=== PATIENT | female | born 1940 | race Caucasian/White ===

== ENCOUNTER 2021-03-01 05:53 | Day surgery (SDC) | payer OTHER ==
[2021-02-28 14:32] LABS: COVID AG,FIA SOURCE NASOPHARYNGEAL
[~2021-03-01] VITALS: Ht 121.9 cm; Wt 33.6 kg
[2021-03-01] MEDS ORDERED: SODIUM CHLORIDE 0.9% 1,000 ML ONE (06:24)
[2021-03-01] MEDS ORDERED: SODIUM CHLORIDE 0.9% 1,000 ML IV ONE (06:30)
[2021-03-01] MEDS ORDERED: ESCI10 PO (07:15)
[2021-03-01] MEDS ORDERED: MONT10TA32 PO (07:15)
[2021-03-01] MEDS ORDERED: TYL3B PO (07:15)
[2021-03-01] MEDS ORDERED: PREG50CA63 PO (07:15)
[2021-03-01] MEDS ORDERED: FERR325T23 PO (07:15)
[2021-03-01] MEDS ORDERED: CARB1TAB38 PO (07:15)
[2021-03-01] MEDS ORDERED: PANT40TA54 PO (07:15)
[2021-03-01] MEDS ORDERED: MIDAZOLAM HCL 5 MG/ML VIAL ONE (07:46)
[2021-03-01] MEDS ORDERED: FentaNYL CITRATE PF 100 MCG/2 ML VIAL ONE (07:46)
[2021-03-01] MEDS ORDERED: MethylPREDNISolone SOD SUCC 125 MG/2 ML VIAL IVP ONE (08:45)
[2021-03-01] MEDS ORDERED: MethylPREDNISolone SOD SUCC 125 MG/2 ML VIAL ONE (08:53)
[2021-03-01] MEDS ORDERED: OXYGEN THERAPY IH SCH (20:00)
== END 2021-03-01 11:00 | disposition home or self-care (01) ==
LOC: SURGERY 05:53
PROVIDERS: ATTEND Internal Medicine Critical Care Medicine
DX: J38.4 Edema of larynx (principal); B37.0 Candidal stomatitis; Z87.01 Personal history of pneumonia (recurrent); Z79.899 Other long term (current) drug therapy; Z98.890 Other specified postprocedural states
CPT/HCPCS: 31623; 31624; 71045; 87015; 87070; 87101; 87205; 87206; 87220; 87426; 88108; 88184; 88185; 88312; C9803; J2250; J2930; J3010; J7030